=== PATIENT | male | born 1955 | race Caucasian/White ===

== ENCOUNTER 2022-01-27 12:33 | Emergency (ER) | payer MEDICAID ==
[~2022-01-27] VITALS: Ht 172.7 cm; Wt 84.1 kg
[2022-01-27] MEDS ORDERED: METHOCARBAMOL 500 MG TABLET PO ONE (13:30)
[2022-01-27] MEDS ORDERED: KETOROLAC TROMETHAMINE 60 MG/2 ML VIAL IM ONE (13:30)
[2022-01-27 18:38] VITALS: BP 119/68
== END 2022-01-27 18:47 | disposition home or self-care (01) ==
LOC: EMS 12:37
DX: M54.50 Low back pain, unspecified (principal); E03.9 Hypothyroidism, unspecified
CPT/HCPCS: 72100; 96372; 99283; J1885

== ENCOUNTER 2022-06-01 09:08 | Emergency (ER) | payer MEDICAID ==
[~2022-06-01] VITALS: Ht 167.6 cm; Wt 86.4 kg
[2022-06-01 11:00] LABS: BASOPHILS % (AUTO) 0.3 % (0.0-2.0); HEMATOCRIT 44.7 % (41-53); HEMOGLOBIN 15.4 g/dL (13.5-17.5); LYMPHOCYTES # (AUTO) 0.9 K/uL (1.0-4.8); LYMPHOCYTES % (AUTO) 15.7 % (22.0-44.0); MEAN CORPUSCULAR HGB CONC 34.6 G/dL (31.0-37.0); MEAN CORPUSCULAR VOLUME 93 fL (80-100); MONOCYTES # (AUTO) 0.7 K/uL (0.1-1.0); MONOCYTES % (AUTO) 13.6 % (2.0-9.0); NEUTROPHILS # (AUTO) 3.8 K/uL (1.8-7.7); NEUTROPHILS % (AUTO) 69.4 % (40.0-70.0); PLATELET COUNT (AUTO) 137 K/uL (150-450); RED BLOOD CELL COUNT(AUTO) 4.82 MIL/uL (4.50-5.90); RED CELL DISTRIBUTION WIDTH 12.9 % (11.5-14.5)
[2022-06-01 11:10] LABS: CREATININE 1.26 mg/dL (0.60-1.30)
[2022-06-01 11:18] LABS: ALBUMIN 3.8 g/dL (3.4-5.0); BILIRUBIN,TOTAL 0.5 mg/dL (0.1-1.0); TOTAL PROTEIN, SERUM 7.6 g/dL (6.4-8.2)
[2022-06-01] MEDS ORDERED: ACETAMINOPHEN 500 MG TABLET PO ONE (12:00)
[2022-06-01] MEDS ORDERED: MAG HYDROX/AL HYDROX/SIMETH ES 30 ML SUSPENSION UDCUP PO ONE (12:00)
[2022-06-01] MEDS ORDERED: GuaiFENesin/D-METHORPHAN [SUGAR-FREE] 200-20MG/10 ML SYRUP UDCUP PO ONE (12:00)
[2022-06-01] MEDS ORDERED: ONDANSETRON HCL 4 MG TABLET PO ONE (12:00)
[2022-06-01 12:02] LABS: COVID AG,FIA SOURCE NASAL SWAB
[2022-06-01 12:08] VITALS: BP 103/65
[2022-06-01 12:28] LABS: INFLUENZA TYPE A NEGATIVE FOR TYPE A (NEGATIVE); INFLUENZA TYPE B NEGATIVE FOR TYPE B (NEGATIVE)
[2022-06-01] MEDS ORDERED: MAG30ORA11 PO (12:44)
[2022-06-01] MEDS ORDERED: IBUP-1554 PO (12:44)
[2022-06-01] MEDS ORDERED: ACET-2080 PO (12:44)
[2022-06-01] MEDS ORDERED: GUAIFDM PO (12:44)
[2022-06-01] MEDS ORDERED: ACET-66 PO (13:53)
== END 2022-06-01 13:33 | disposition home or self-care (01) ==
LOC: EMS 09:09
DX: U07.1 COVID-19 (principal); K29.70 Gastritis, unspecified, without bleeding; R07.89 Other chest pain; E03.9 Hypothyroidism, unspecified
CPT/HCPCS: 99285; 71045; 87426; 80053; 83690; 84484; 85025; 87804; 93005; Q0162

== ENCOUNTER 2022-11-16 16:40 | Emergency (ER) | payer MEDICAID ==
[~2022-11-16] VITALS: Ht 170.2 cm; Wt 81.8 kg
[~2022-11-16 16:40] MED LIST: ACET-66 PO; GUAIFDM PO; IBUP-1554 PO; MAG30ORA11 PO
[2022-11-16] MEDS ORDERED: ACYC-138 PO (17:02)
[2022-11-16] MEDS ORDERED: LEVO125 PO (17:02)
[2022-11-16] MEDS ORDERED: TAMS-13 PO (17:02)
[2022-11-16] MEDS ORDERED: IBUPROFEN 600 MG TABLET PO ONE (19:45)
[2022-11-16 20:17] VITALS: BP 120/70
[2022-11-16] MEDS ORDERED: IBUP-1492 PO (20:19)
== END 2022-11-16 20:38 | disposition home or self-care (01) ==
LOC: EMS 16:47
DX: S90.31XA Contusion of right foot, initial encounter (principal); E03.9 Hypothyroidism, unspecified; W19.XXXA Unspecified fall, initial encounter; Y93.89 Activity, other specified; Y92.89 Other specified places as the place of occurrence of the external cause; Y99.8 Other external cause status
CPT/HCPCS: 99283

== ENCOUNTER 2023-01-06 14:45 | Emergency (ER) | payer MEDICAID ==
[~2023-01-06] VITALS: Ht 167.6 cm; Wt 81.8 kg
[~2023-01-06 14:45] MED LIST changes: -ACET-66 PO; +ACYC-138 PO; -GUAIFDM PO; +IBUP-1492 PO; -IBUP-1554 PO; +LEVO125 PO; -MAG30ORA11 PO; +TAMS-13 PO
[2023-01-06 15:44] LABS: BASOPHILS % (AUTO) 0.2 % (0.0-2.0); EOSINOPHILS % (AUTO) 11.3 % (1.0-6.0); HEMATOCRIT 48.5 % (41-53); HEMOGLOBIN 16.3 g/dL (13.5-17.5); LYMPHOCYTES # (AUTO) 2.2 K/uL (1.0-4.8); LYMPHOCYTES % (AUTO) 32.1 % (22.0-44.0); MEAN CORPUSCULAR HEMOGLOBIN 32.7 pg (26.0-34.0); MEAN CORPUSCULAR HGB CONC 33.7 G/dL (31.0-37.0); MEAN CORPUSCULAR VOLUME 97 fL (80-100); MONOCYTES # (AUTO) 0.5 K/uL (0.1-1.0); MONOCYTES % (AUTO) 7.1 % (2.0-9.0); NEUTROPHILS # (AUTO) 3.4 K/uL (1.8-7.7); NEUTROPHILS % (AUTO) 49.3 % (40.0-70.0); PLATELET COUNT (AUTO) 171 K/uL (150-450); RED BLOOD CELL COUNT(AUTO) 4.99 MIL/uL (4.50-5.90); RED CELL DISTRIBUTION WIDTH 13.3 % (11.5-14.5)
[2023-01-06 15:53] LABS: ANION GAP 6 mmol/L (8-16); CALCIUM, TOTAL 9.4 mg/dL (8.8-10.5); CARBON DIOXIDE 29 mmol/L (22-29); CHLORIDE 102 mmol/L (98-107); CREATININE 0.89 mg/dL (0.60-1.30); GLOMERULAR FILTR. RATE CALC > 60 mL/min (>60); GLUCOSE,RANDOM 108 mg/dL (70-110); POTASSIUM 4.5 mmol/L (3.5-5.1); SODIUM SERUM 137 mmol/L (136-145); UREA NITROGEN, BLOOD 13 mg/dL (7-18)
[2023-01-06 16:02] LABS: ALANINE AMINOTRANSFERASE 38 U/L (12-78); ALBUMIN 4.2 g/dL (3.4-5.0); ALKALINE PHOSPHATASE 29 U/L (46-116); ASPARTATE AMINOTRANSFERASE 28 U/L (15-37); BILIRUBIN,TOTAL 0.6 mg/dL (0.1-1.0)
[2023-01-06] MEDS ORDERED: SODIUM CHLORIDE 0.9% 1,000 ML IV ONE (16:45)
[2023-01-06] MEDS ORDERED: HYDROmorphone HCL 2 MG/ML SYRINGE IVP ONE (16:45)
[2023-01-06] MEDS ORDERED: ONDANSETRON HCL 4 MG/2 ML VIAL IVP ONE (16:45)
[2023-01-06] MEDS ORDERED: LIDOCAINE 1% 10 ML VIAL SQ ONE (17:15)
[2023-01-06 19:30] VITALS: BP 115/62
[2023-01-06] MEDS ORDERED: ONDA-104 PO (19:41)
[2023-01-06] MEDS ORDERED: IBUP-1554 PO (19:41)
== END 2023-01-06 20:06 | disposition still patient (30) ==
LOC: EMS 14:59
DX: M54.2 Cervicalgia (principal); R11.10 Vomiting, unspecified; E03.9 Hypothyroidism, unspecified; N40.0 Benign prostatic hyperplasia without lower urinary tract symptoms
CPT/HCPCS: 99285; 96374; 70450; 96361; 96375; 80053; 84484; 85025; 36415; J1170; J2405; J3490; J7030

== ENCOUNTER 2023-04-07 12:27 | Emergency (ER) | payer MEDICAID ==
[~2023-04-07] VITALS: Ht 167.6 cm; Wt 81.8 kg
[~2023-04-07 12:27] MED LIST changes: -IBUP-1492 PO; +IBUP-1554 PO; +ONDA-104 PO
[2023-04-07] MEDS ORDERED: ACYC400T20 PO (12:34)
[2023-04-07] MEDS ORDERED: LEVO75 PO (12:34)
[2023-04-07] MEDS ORDERED: KETOROLAC TROMETHAMINE 30 MG/ML VIAL IM ONE (13:15)
[2023-04-07 16:30] VITALS: BP 133/69
[2023-04-07] MEDS ORDERED: TRIAMCINOLONE ACETONIDE 40 MG/ML VIAL IARTIC ONE (16:45)
[2023-04-07] MEDS ORDERED: BUPIVACAINE HCL/PF 0.5% 10 ML VIAL IARTIC ONE (17:00)
[2023-04-07] MEDS ORDERED: BUPIVACAINE HCL/PF 0.5% 30 ML VIAL IARTIC ONE (17:00)
[2023-04-07] MEDS ORDERED: LIDOCAINE 1% 10 ML VIAL IARTIC ONE (17:00)
== END 2023-04-07 17:14 | disposition home or self-care (01) ==
LOC: EMS 12:29
DX: S90.31XA Contusion of right foot, initial encounter (principal); M25.561 Pain in right knee; M25.571 Pain in right ankle and joints of right foot; N40.0 Benign prostatic hyperplasia without lower urinary tract symptoms; E03.9 Hypothyroidism, unspecified; Z98.890 Other specified postprocedural states; W22.8XXA Striking against or struck by other objects, initial encounter; Y93.89 Activity, other specified; Y92.89 Other specified places as the place of occurrence of the external cause; Y99.8 Other external cause status
CPT/HCPCS: 99284; 20550; 73562; 73610; 73630; 96372; J1885; J3301; J3490